=== PATIENT | female | born 1985 | race Caucasian/White ===

== ENCOUNTER 2017-12-21 05:21 | Emergency (ER) | payer OTHER, MEDICAID ==
[2017-12-21 06:26] LABS: URINE BLOOD (Dip) POC Trace-intact (NEGATIVE); URINE GLUCOSE (Dip) POC Negative (NEGATIVE); URINE KETONES (Dip) POC Negative (NEGATIVE); URINE LEUKOCYTE EST (Dip) POC Negative (NEGATIVE); URINE NITRITE (Dip) POC Negative (NEGATIVE); URINE TOTAL PROTEIN POC Negative (NEGATIVE)
[2017-12-21] MEDS: LORAZEPAM 1 MG TAB PO (06:41)
== END 2017-12-21 07:08 | disposition home or self-care (01) ==
LOC: FTE 05:21
DX: R00.2 Palpitations (principal); F17.210 Nicotine dependence, cigarettes, uncomplicated
CPT/HCPCS: 81003; 81025; 93005; 99283-25

== ENCOUNTER 2018-01-03 18:51 | Emergency (ER) | payer OTHER ==
[2018-01-03] MEDS: DIAZEPAM 2 MG TAB PO (20:53)
== END 2018-01-03 21:01 | disposition home or self-care (01) ==
LOC: FTE 18:51
DX: F41.9 Anxiety disorder, unspecified (principal); F17.210 Nicotine dependence, cigarettes, uncomplicated
CPT/HCPCS: 99283; Z7502